=== PATIENT | male | born 1955 | race Hispanic/Latino ===

== ENCOUNTER 2024-06-07 14:36 | Emergency (ER) | payer MEDICARE ==
[~2024-06-07 14:36] MED LIST: Iopamidol 370 76% 100 ML VIAL ONE
[2024-06-07] MEDS ORDERED: Lorazepam 2 MG/ML VIAL ONE (14:58)
[2024-06-07 15:28] LABS: #Basophils Less than 0.03 10x3/uL (0.0-0.2); #Eosinophils 0.08 10x3/uL (0.0-0.5); #Monocytes 0.58 10x3/uL (0.0-1.1); #Neutrophils 5.13 10x3/uL (1.5-8.4); %Basophils 0.3 % (0.0-2.0); %Eosinophils 1.1 % (0.0-6.0); %Lymphocytes 21.5 % (18.0-47.0); %Monocytes 7.8 % (0.0-10.0); %Neutrophils 69.2 % (40.0-75.0); Hematocrit 37.8 % (38.8-50.0); Hemoglobin 13.3 g/dL (13.5-17.5); Mean Corpuscular HGB CONC 35.2 g/dL (32.0-36.0); Mean Corpuscular Hemoglobin 32.4 pg (27.0-33.0); Mean Corpuscular Volume 92.2 fL (81.2-95.1); Mean Platelet Volume 10.2 fL (7.4-10.4); Platelet Count 182 10x3/uL (150-450); White Blood Cell (WBC) Count 7.41 10x3/uL (3.5-10.5)
[2024-06-07 15:35] LABS: Prothrombin Time 11.3 sec (9.5-12.1)
[2024-06-07 15:38] LABS: ALT (SGPT) 22 U/L (8-55); AST (SGOT) 26 U/L (5-34); Albumin 4.3 g/dL (3.4-4.8); Alkaline Phosphatase 129 U/L (40-110); Anion Gap 15 mmol/L (10-20); BUN (Urea Nitrogen) 15 mg/dL (8.4-25.7); Bilirubin, Total 0.5 mg/dL (0.2-1.2); CK (CPK) 131 U/L (30-200); Calc. Creatinine Clearance 0 mL/min (70-130); Carbon Dioxide 20 mmol/L (23-31); Chloride 101 mmol/L (98-107); Estimated GFR 85; Globulin 3.2 g/dL (2.4-3.5); Glucose 389 mg/dL (83-110); Potassium 3.7 mmol/L (3.5-5.1); Protein, Total 7.5 g/dL (5.8-8.1); Sodium 132 mmol/L (136-145)
[2024-06-07 15:55] LABS: Troponin I 0.229 ng/mL (< 0.028)
[2024-06-07 16:22] LABS: Bilirubin Neg (Negative); Blood, Urine Negative (Negative); Clarity Clear (Clear); Glucose, Urine (Dipstick) >=1000 mg/dL (Negative); Ketone, Urine 5 mg/dL (Negative); Leukocyte Negative (Negative); Nitrite Negative (Negative); Protein, Urine (Dipstick) 30 mg/dl (Neg-Trace); Urobilinogen Normal mg/dL (Less than 2)
[2024-06-07 16:32] LABS: RBC/HPF 0-3 HPF (0-3)
[2024-06-07 16:33] LABS: Bacteria/HPF Rare-Few HPF (None Seen); CAUTI Indications for Culture Alt mental st,lethar; Squamous Epithelial None Seen HPF (0-3); WBC/HPF 0-3 HPF (0-3)
[2024-06-07 16:34] LABS: Urine Culture Reflex No No
[2024-06-07] MEDS ORDERED: Aspirin Chewable 81 MG TAB ONE (16:36)
== END 2024-06-07 20:55 | disposition short-term general hospital (02) ==
LOC: CSHERS 14:36
DX: I63.9 Cerebral infarction, unspecified (principal); I70.90 Unspecified atherosclerosis; I10 Essential (primary) hypertension; E11.9 Type 2 diabetes mellitus without complications; E78.5 Hyperlipidemia, unspecified; Z79.84 Long term (current) use of oral hypoglycemic drugs; Z79.899 Other long term (current) drug therapy; Z55.0 Illiteracy and low-level literacy
CPT/HCPCS: 0042T; 70450; 71045; 80053; 81001; 82550; 82962; 84484; 85025; 85610; 85730; 93005; 94760; 99285; Q9967; 36415; 36416; J2060